=== PATIENT | female | born 1965 ===

== ENCOUNTER 2024-10-29 09:05 | Outpatient (REF) | payer BC, SELFPAY ==
[2024-10-29 09:14] LABS: Abs Immature Grans 0.02 10^3/uL (0.0-0.06); Absolute Basophil Count 0.04 10^3/uL (0.0-0.2); Absolute Eosinophil Count 0.22 10^3/uL (0.0-0.7); Absolute Lymphocyte Count 1.61 10^3/uL (1.2-3.4); Absolute Monocyte Count 0.53 10^3/uL (0.1-0.8); Absolute Neutrophil Count 1.99 10^3/uL (1.2-6.7); Basophils % 0.9 %; HCT 44.1 % (36.0-46.0); Immature Grans % 0.5 %; Lymphocytes % 36.5 %; MCH 30.4 pg (27.0-33.0); MCV 90 fL (80-95); MPV 8.8 fL (8.0-11.0); Neutrophils % 45.1 %; Platelet Count 178 10^3/uL (130-400); RBC 4.93 10^6/uL (3.93-5.22); RDW 12.1 % (11.7-14.6); RDW-SD 40.1 fL; WBC 4.41 10^3/uL (4.4-10.8)
== END 2024-10-29 09:06 | disposition home or self-care (01) ==
LOC: LBN 09:05
PROVIDERS: PCP Nurse Practitioner Family; Visit Provider Physician Assistant Surgical
DX: J44.9 Chronic obstructive pulmonary disease, unspecified (principal)
CPT/HCPCS: 85025